=== PATIENT | female | born 1970 | race Caucasian/White ===

== ENCOUNTER → 2021-07-11 09:23 | Outpatient (CLI) | payer BC, SELFPAY ==
[2021-07-11 11:06] LABS: Add Manual Diff / Slide Review NO; Basophils Absolute Auto 0 /uL (0-100); Basophils Percent Auto 0.8 % (0-2); Eosinophils Absolute Auto 200 /uL (0-450); Eosinophils Percent Auto 4.4 % (2-4); Hematocrit 30.8 % (36-46); Hemoglobin 10.2 g/dL (12.0-16.0); Lymphocytes Absolute Auto 1400 /uL (1100-4500); Lymphocytes Percent Auto 35.7 % (25-40); Mean Corpuscular HGB Conc 33.2 % (30-36); Mean Corpuscular Hemoglobin 31.1 PG (26-34); Mean Corpuscular Volume 93.6 fL (80-100); Monocytes Absolute Auto 200 /uL (0-900); Neutrophils Absolute Auto 2200 /uL (1500-7000); Neutrophils Percent Auto 54.1 % (50-75); Platelet Count 177 X10^3/uL (150-400); Red Blood Cell Count 3.29 X10^6/uL (4.0-5.2)
[2021-07-11 11:12] LABS: Hemoglobin A1C% w Est Avg Glu 5.6 % (4.0-6.0)
[2021-07-11 11:35] LABS: HEMOLYSIS < 15 (0-50); Iron 99 ug/dL (37-170)
[2021-07-11 11:42] LABS: Albumin 4.2 g/dL (3.5-5.0); BUN Creatinine Ratio 15.8 (6-22); Blood Urea Nitrogen 27 mg/dL (7-17); Calcium 9.4 mg/dL (8.4-10.2); Carbon Dioxide 32 mmol/L (22-32); Chloride 103 mmol/L (98-107); Estimated Glomerular Filt Rate 36 mL/min (>60); Glucose 101 mg/dL (70-100); HEMOLYSIS < 15 (0-50); Phosphorous 4.5 mg/dL (2.5-4.5); Potassium 4.8 mmol/L (3.4-5.1); Sodium 141 mmol/L (137-145)
[2021-07-11 11:46] LABS: Percent Iron Saturation 27 % (15-50); Total Iron Binding Capacity 361 ug/dL (265-497); Transferrin 270 mg/dL (206-381)
[2021-07-11 12:13] LABS: Ferritin 49 ng/mL (11-264)
[2021-07-11 12:27] LABS: Vitamin D 25 Hydroxy (D3) 26.2 ng/mL (30.0-100.0)
[2021-07-12 06:31] LABS: Calcium 9.6 mg/dL (8.7-10.2); Parathyroid Hormone, Intact 67 pg/mL (15-65)
[2021-07-15 12:36] LABS: Alpha-1 Globulin, Ur 7.1 % (.); Beta Globulin, Ur 27.7 % (.); Gamma Globulin, Ur 17.4 % (.); M-Spike % Not Observed % (Not Observed); Urine Total Protein 11.1 mg/dL (Not Estab.)
== END ==
PROVIDERS: Referring Provider Internal Medicine; Visit Provider Internal Medicine
DX: N18.30 Chronic kidney disease, stage 3 unspecified (principal); I12.9 Hypertensive chronic kidney disease with stage 1 through stage 4 chronic kidney disease, or unspecified chronic kidney disease; E11.22 Type 2 diabetes mellitus with diabetic chronic kidney disease; D63.1 Anemia in chronic kidney disease; E55.9 Vitamin D deficiency, unspecified; N25.81 Secondary hyperparathyroidism of renal origin; R80.9 Proteinuria, unspecified
CPT/HCPCS: 36415; 80069; 82306; 82310; 82728; 83036; 83540; 83550; 83970; 84156; 84166; 85025

== ENCOUNTER 2022-12-25 14:45 | Emergency (ER) | payer BC, SELFPAY ==
[2022-12-25 14:51] VITALS: BP 150/83; PULSE 72; RESP 16; TEMP 36.4; O2SAT 95; BMI 58.1
--- NOTE | 2022-12-25 15:45 | ED_ITS ---
HPI - Extremity Injury (Lower) <Horacio Kumar PA-C - Last Filed: 12/25/22 15:58> General Chief Complaint: Extremity Injury, Lower Stated Complaint: LT LEG SWELLING Time Seen by Provider: 12/25/22 15:45 History of Present Illness HPI Narrative: This is a 52-year-old female presents emergency department due to intermittent paresthesias to her left lateral calf that she is noticed for the last couple of months. She states that it worsened after she since All long periods of time sitting such as sitting on the toilet. She denies any pain or acute trauma to the area. She denies any pain to the posterior calf. Denies any chest pain, shortness of breath, or any other concerning signs or symptoms. Reports full ability to walk and full range of motion of the ankle and toes. States that she only feels a light paresthesia and occasional numbness to the lateral calf occasionally. Related Data Allergies Allergy/AdvReac Type Severity Reaction Status Date / Time ibuprofen AdvReac Intermediate Verified 12/25/22 14:57 Review of Systems <Horacio Kumar PA-C - Last Filed: 12/25/22 15:58> Review of Systems Narrative: GENERAL: Denies chills, fatigue, malaise, fever, sweats. HEENT: Denies sinus pain, ear pain, sore throat, difficulty swallowing, dizziness. RESPIRATORY: Denies dyspnea, cough, wheezing, hemoptysis, sputum. CARDIOVASCULAR: Denies chest pain, palpitations, orthopnea, edema, GASTROINTESTINAL: Denies nausea, vomiting, abdominal pain, diarrhea, constipation, melena. : Denies dysuria, frequency, incontinence, hematuria, urinary retention. MUSCULOSKELETAL: denies weakness, joint pain, or bony pain SKIN: Denies rash, skin lesions, or other NEUROLOGIC: Left lateral calf paresthesias Denies weakness, headache, numbness, change in speech, confusion, seizures, incoordination. PSYCHIATRIC: No concerning psychosocial issues. 12 point review of systems is negative except for those stated above Exam <Horacio Kumar PA-C - Last Filed: 12/25/22 15:58> Narrative Exam Narrative: GENERAL: Well-developed patient, in mild distress. HEAD: Atraumatic. Normocephalic. EYES: Pupils equal round and reactive. Extraocular motions intact. No scleral icterus. No injection or drainage. ENT: Nose without bleeding, purulent drainage. Throat without erythema, tonsillar hypertrophy or exudate. Airway patent. NECK: Trachea midline. Non tender CARDIOVASCULAR: Regular rate and rhythm without murmurs, gallops, or rubs. RESPIRATORY: Clear to auscultation. Breath sounds equal bilaterally. No wheezes, rales, or rhonchi. GASTROINTESTINAL: Abdomen soft, non-tender, nondistended. EXTREMITIES: No edema or joint tenderness. No tenderness to palpation of the posterior left calf. No tenderness throughout the calf. BACK: Nontender without deformity or crepitance. No flank tenderness. NEURO: AOx3. SKIN: No rash or erythema of visible areas Initial Vital Signs Initial Vital Signs: Vital Signs Temperature 97.6 F 12/25/22 14:51 Pulse Rate 72 12/25/22 14:51 Respiratory Rate 16 12/25/22 14:51 Blood Pressure 150/83 H 12/25/22 14:51 Pulse Oximetry 95 12/25/22 14:51 Oxygen Delivery Method Room Air 12/25/22 14:51 <Rafaela Collins MD - Last Filed: 12/25/22 16:37> Initial Vital Signs Initial Vital Signs: Vital Signs Temperature 97.6 F 12/25/22 14:51 Pulse Rate 72 12/25/22 14:51 Respiratory Rate 16 12/25/22 14:51 Blood Pressure 150/83 H 12/25/22 14:51 Pulse Oximetry 95 12/25/22 14:51 Oxygen Delivery Method Room Air 12/25/22 14:51 Course <Horacio Kumar PA-C - Last Filed: 12/25/22 15:58> Vital Signs Vital signs: Vital Signs - 8 hr 12/25/22 14:51 Temperature 97.6 F Pulse Rate 72 Respiratory Rate 16 Blood Pressure 150/83 H Pulse Oximetry 95 Oxygen Delivery Method Room Air <Rafaela Collins MD - Last Filed: 12/25/22 16:37> Vital Signs Vital signs: Vital Signs - 8 hr 12/25/22 14:51 Temperature 97.6 F Pulse Rate 72 Respiratory Rate 16 Blood Pressure 150/83 H Pulse Oximetry 95 Oxygen Delivery Method Room Air MDM - Extremity Injury (Lower) <Horacio Kumar PA-C - Last Filed: 12/25/22 15:58> MDM Narrative Medical decision making narrative: MDM * differential diagnosis includes but not limited to DVT, fracture, muscle strain, neuropathy * Prior records reviewed: Patient has not been seen here in the past. * My lab interpretation: None obtained * My imgaing interpretation: None obtained * Clinical Decision Rules/Scores evaluated: None * Independent discussions with: None ED Course: This is a 52-year-old female presents emergency department due to suspected mild paresthesias secondary to a decrease in the blood flow temporarily while sitting in 1 position for too long. She denies any posterior calf pain and very low concern for any kind of DVT. Denies any trauma no concern for any fractures. Recommended she follow up with the primary care provider for further nerve testing if symptoms continue. Shared Decision Making: Discussed plan with the patient who is comfortable with the plan. Social Considerations: None Disposition: Discharged home Discharge Plan Departure Patient Disposition: Home Clinical Impression: Paresthesia Activity Restrictions/Additional Instructions: Thank you for coming to the [facility] Emergency Department today. As we discussed I suspect the occasional numbness and tingling your feeling in her left lateral calf is due to a decrease in blood flow when he sits in a certain position for too long. This is not an emergent need and I do recommend you follow up with the primary care provider for further testing if her symptoms continue. I have very low concern for any kind of blood clot or any kind of bony injury or fracture. I hope you feel better soon. Please follow up with your primary care provider within a week if your symptoms continue. If you do not have a primary care provider please contact the [facility] Resource line at [phone]. They will ask some questions about your medical history and help you get set up with a provider in the community. Stand Alone Forms: Patient Portal/API ED Sign-out <Rafaela Collins MD - Last Filed: 12/25/22 16:37> Cosign ED Attending Cosjenniferature Attestation: I did not see this patient. I was available all times for consultation.
== END 2022-12-25 16:13 | disposition home or self-care (01) ==
PROVIDERS: Emergency Provider Physician Assistant Medical
DX: R20.2 Paresthesia of skin (principal)
CPT/HCPCS: 99281; 99282